=== PATIENT | female | born 1985 | race African-American/Black ===

== ENCOUNTER 2016-09-16 22:50 | Emergency (ER) | payer OTHER ==
[~2016-09-16] VITALS: Ht 165.1 cm; Wt 91.2 kg
[~2016-09-16 22:50] MED LIST: IBUP-2213 PO
[2016-09-16 23:10] VITALS: BP 141/100
--- NOTE | 2016-09-17 00:08 | NUR ---
PT TAKEN TO BED 6
--- NOTE | 2016-09-17 00:14 | NUR ---
PT IS 31/F BIB SELF TO ED WITH C/O ABCESS TO BILATERAL /UNDERKNEE BREASTS AND R ABD SIDE X MTHS. PT ALSO STATES HAS BEING FEELING NAUSEATED AND HAS CHILLS X 3-4 DAYS.PT STATES NO MED HX. DENIES V/D; SKIN IS WARM/DRY; AAOX4 WITH EVEN AND STEADY GAIT; LUNGS CLEAR BL; HR EVEN AND REGULAR; PT DENIES ANY FEVER, CP, SOB, OR COUGH AT THIS TIME; PATIENT STATES PAIN OF 10/10 AT THIS TIME; VSS; PATIENT POSITIONED FOR COMFORT; HOB ELEVATED; BEDRAILS UP X2; BED DOWN. ER MD MADE AWARE OF PT STATUS.
--- NOTE | 2016-09-17 00:26 | NUR ---
Dr. Vicente evaluating patient at bedside.
[2016-09-17] MEDS ORDERED: LIDOCAINE 1% ED 50 ML ONE (00:33)
[2016-09-17 01:03] VITALS: BP 130/92
--- NOTE | 2016-09-17 01:03 | NUR ---
Patient discharged with v/s stable. Written and verbal after care instructions given and explained. Patient alert, oriented and verbalized understanding of instructions. Ambulatory with steady gait. All questions addressed prior to discharge. ID band removed. Patient advised to follow up with PMD. Rx of TRAMADOL HYDROCHLORIDE, MOTRIN, BACTRIM given. Patient educated on indication of medication including possible reaction and side effects. Opportunity to ask questions provided and answered.
== END 2016-09-17 01:03 | disposition home or self-care (01) ==
LOC: MED 22:50
DX: N61.1 Abscess of the breast and nipple (principal)
CPT/HCPCS: 10060; 99283; J2001

== ENCOUNTER 2016-09-18 16:14 | Emergency (ER) | payer OTHER ==
[~2016-09-18] VITALS: Ht 162.6 cm; Wt 132.0 kg
[~2016-09-18 16:14] MED LIST changes: -IBUP-2213 PO; +MOTRIN600 MG PO
[2016-09-18 16:21] VITALS: BP 132/76
--- NOTE | 2016-09-18 16:45 | NUR ---
PATIENT PRESENTS TO ED FOR RECHECK OF RIGHT BREAST ABSCESSED I&D'D 2 DAYS AGO . DENIES N/V/D; SKIN IS PINK/WARM/DRY; AAOX4 WITH EVEN AND STEADY GAIT; LUNGS CLEAR BL; HR EVEN AND REGULAR; PT DENIES ANY FEVER, CP, SOB, OR COUGH AT THIS TIME; PATIENT STATES PAIN OF 7/10 AT THIS TIME; VSS; PATIENT IN OVERFLOW. ER MD MADE AWARE OF PT STATUS.
--- NOTE | 2016-09-18 16:47 | NUR ---
ER MD EVALUATING PT IN TRIAGE.
[2016-09-18 17:02] VITALS: BP 132/76
--- NOTE | 2016-09-18 17:02 | NUR ---
Patient discharged with v/s stable. Written and verbal after care instructions given and explained. Patient verbalized understanding. Ambulatory with steady gait. All questions addressed prior to discharge. Advised to follow up with PMD.
== END 2016-09-18 17:02 | disposition home or self-care (01) ==
LOC: MED 16:14
DX: Z48.01 Encounter for change or removal of surgical wound dressing (principal)

== ENCOUNTER 2018-07-20 13:01 | Emergency (ER) | payer OTHER ==
[~2018-07-20] VITALS: Ht 165.1 cm; Wt 131.1 kg
[~2018-07-20 13:01] MED LIST changes: +IBUP-2213 PO; -MOTRIN600 MG PO
[2018-07-20 13:05] VITALS: BP 129/64
--- NOTE | 2018-07-20 13:16 | NUR ---
AFTER PROVIDING URINE SAMPLE, PT AMBULATES BACK TO THE LOBBY
--- NOTE | 2018-07-20 14:12 | NUR ---
PT AMBULATED TO ER BED 7
--- NOTE | 2018-07-20 14:18 | NUR ---
BIB SELF WITH C/O MID CHEST PAIN/TIGHTNESS/HEAVINESS RADIATING TO HER BACK SINCE LAST NIGHT WITH SOB. DENIES N/V/D; SKIN IS PINK/WARM/DRY; AAOX4 WITH EVEN AND STEADY GAIT; LUNGS CLEAR BL; HR EVEN AND REGULAR; PT DENIES ANY FEVER, CP, SOB, OR COUGH AT THIS TIME; PATIENT STATES PAIN OF 6/10 AT THIS TIME; VSS; PATIENT POSITIONED FOR COMFORT; HOB ELEVATED; BEDRAILS UP X2; BED DOWN. ER MD MADE AWARE OF PT STATUS.
--- NOTE | 2018-07-20 15:42 | NUR ---
PT TAKEN TO RAD AT THIS TIME VIA WHEELCHAIR
--- NOTE | 2018-07-20 15:49 | NUR ---
PT RETURNED FROM RADIOLOGY AT THIS TIME VIA WHEELCHAIR
[2018-07-20 15:51] LABS: BASOPHILS % (AUTO) 0.4 % (0.0-2.0); EOSINOPHILS # (AUTO) 0.1 K/uL (0-0.4); EOSINOPHILS % (AUTO) 1.8 % (0.0-4.0); HEMATOCRIT 38.6 % (36-48); HEMOGLOBIN 12.9 g/dL (12.0-16.0); LYMPHOCYTES # (AUTO) 2.3 K/uL (2.5-16.5); MEAN CORPUSCULAR HEMOGLOBIN 32 pg (27-31); MEAN CORPUSCULAR HGB CONC 33 g/dL (33-37); MEAN CORPUSCULAR VOLUME 96.3 fL (80-94); MONOCYTES # (AUTO) 0.7 K/uL (0.8-1.0); MONOCYTES % (AUTO) 8.1 % (1.7-9.3); NEUTROPHILS % (AUTO) 61.7 % (42.2-75.2); PLATELET COUNT (AUTO) 189 K/uL (140-450); RED BLOOD CELL COUNT(AUTO) 4.01 MIL/uL (4.20-5.40); WHITE BLOOD COUNT (AUTO) 8.1 K/uL (4.8-10.8)
[2018-07-20 16:13] LABS: ALBUMIN 3.1 g/dL (3.4-5.0); ANION GAP 11.9 (8-16); CREATININE 0.8 mg/dL (0.6-1.3); POTASSIUM 3.9 mmol/L (3.5-5.1); TOTAL BILIRUBIN 0.3 mg/dL (0.0-1.0)
--- NOTE | 2018-07-20 16:45 | NUR ---
pt stated chest pain relieved. pt's mother at bedside.
[2018-07-20 17:33] VITALS: BP 107/52
--- NOTE | 2018-07-20 17:34 | NUR ---
Patient discharged with v/s stable. Written and verbal after care instructions given and explained. Patient verbalized understanding. Ambulatory with steady gait. All questions addressed prior to discharge. Advised to follow up with PMD. dr. strickland explained to pt risks of chest pain and prevention ways. lab work results also explained to pt.
== END 2018-07-20 17:34 | disposition home or self-care (01) ==
LOC: MED 13:01
DX: R07.89 Other chest pain (principal); R06.02 Shortness of breath; R42 Dizziness and giddiness; F17.200 Nicotine dependence, unspecified, uncomplicated; Z79.899 Other long term (current) drug therapy
CPT/HCPCS: 36415; 71046; 80053; 81002; 81025; 83690; 83880; 84484; 85025; 85379; 93005; 99284

== ENCOUNTER 2022-08-17 17:24 | Emergency (ER) | payer OTHER ==
[~2022-08-17] VITALS: Ht 165.1 cm; Wt 127.0 kg
[2022-08-17 17:38] VITALS: BP 167/95
[2022-08-17] MEDS ORDERED: ONDANSETRON 4 MG ODT PO ONE (18:20)
[2022-08-17] MEDS ORDERED: KETOROLAC 60 MG/2 ML VIAL IM ONE (18:20)
[2022-08-17] MEDS ORDERED: IBUP-2213 PO (18:26)
[2022-08-17] MEDS ORDERED: ONDA8TAB87 PO (18:26)
[2022-08-17] MEDS ORDERED: PRED20TA5 PO (18:26)
--- NOTE | 2022-08-17 18:30 | NUR ---
CHANGED TO DR MONTSE AIKEN AT BEDSIDE FOR EXAM.
[2022-08-17 19:10] VITALS: BP 147/79
--- NOTE | 2022-08-17 19:10 | NUR ---
Patient discharged with v/s stable. Written and verbal after care instructions given. Patient alert, oriented and verbalized understanding of instructions. Ambulatory with steady gait. All questions addressed prior to discharge. ID band removed. Patient advised to follow up with PMD. Rx of Ibuprofen, Zofran and Deltasone given. Opportunity to ask questions provided and answered.
--- NOTE | 2022-08-17 19:22 | NUR ---
The patient's care was reviewed and supervised by ED Agency Nurse 7, RN, RN.
== END 2022-08-17 19:10 | disposition home or self-care (01) ==
LOC: MED 17:24
DX: M54.6 Pain in thoracic spine (principal); R05.9 Cough, unspecified; R21 Rash and other nonspecific skin eruption; F17.200 Nicotine dependence, unspecified, uncomplicated; Z79.1 Long term (current) use of non-steroidal anti-inflammatories (NSAID)
CPT/HCPCS: 93005; 96372; 99283; J1885; Q0162

== ENCOUNTER 2023-05-26 08:36 | Emergency (ER) | payer OTHER ==
[~2023-05-26] VITALS: Ht 165.1 cm; Wt 128.8 kg
[~2023-05-26 08:36] MED LIST changes: +ONDA8TAB87 PO; +PRED20TA5 PO
[2023-05-26 08:37] VITALS: BP 184/97; PULSE 83; RESP 16; TEMP 98.5; O2SAT 99
[2023-05-26] MEDS: KETOROLAC 30 MG/ML VIAL IM ONE (09:12)
[2023-05-26] MEDS: ACETAMINOPHEN 325 MG TAB PO ONE (09:13)
[2023-05-26] MEDS ORDERED: METH-1681 PO (09:21)
[2023-05-26] MEDS ORDERED: IBUP-2213 PO (09:21)
[2023-05-26 09:35] VITALS: BP 184/97; PULSE 83; RESP 16; TEMP 98.5; O2SAT 99
== END 2023-05-26 09:36 | disposition home or self-care (01) ==
LOC: MED 08:36
DX: S39.012A Strain of muscle, fascia and tendon of lower back, initial encounter (principal); V49.88XA Car occupant (driver) (passenger) injured in other specified transport accidents, initial encounter; Y93.89 Activity, other specified; Y92.89 Other specified places as the place of occurrence of the external cause; Y99.8 Other external cause status
CPT/HCPCS: 96372; 99283; J1885